=== PATIENT | female | born 1990 | race Caucasian/White ===

== ENCOUNTER 2018-11-10 06:30 | Inpatient (IN) ==
[~2018-11-10 06:30] MED LIST: D5LR 1L W PITOCIN 10 UNITS/L 10 UNITS/1,000 ML BAG IV ONE; LR 1000 ML IV 1,000 ML IV ONE; NS 100 ML IV 100 ML IV ONE; XYLOCAINE 1 % (PLAIN) ONE
[2018-11-10] MEDS ORDERED: XYLOCAINE-MPF 1% ONE (06:31)
[2018-11-10] MEDS ORDERED: FENTANYL INJ 100 mcg ONE (06:31)
[2018-11-10] MEDS ORDERED: AMPICILLIN VIAL 2 GRAM ONE (06:31)
[2018-11-10] MEDS ORDERED: D5 1/2 NS 1L W PITOCIN 20 UNITS/L 20 UNITS/1,000 ML BAG IV ONE (06:31)
[2018-11-10] MEDS ORDERED: D5 1/2 NS 1000 ML 1,000 ML IV ONE (06:31)
[2018-11-10] MEDS ORDERED: ADRENALINE CHL INJ ONE (06:31)
[2018-11-10] MEDS ORDERED: NAROPIN EPIDURAL 0.2% + FENTANYL 90MCG 60 ML EPI ONE (06:31)
[2018-11-10] MEDS ORDERED: PITOCIN ONE (06:32)
[2018-11-10] MEDS ORDERED: PHENERGAN INJ 25 MG IV PRN ×2 (06:41→11:42)
[2018-11-10] MEDS ORDERED: REGLAN INJ 10 MG VIAL IVP PRN (06:41)
[2018-11-10] MEDS ORDERED: PITOCIN IVP ONE (06:41)
[2018-11-10] MEDS ORDERED: NUBAIN INJ 200 MG VIAL MULTIDOSE IVP PRN (06:41)
[2018-11-10] MEDS ORDERED: D5 1/2 NS 1000 ML 1,000 ML IV SCH (06:41)
[2018-11-10] MEDS ORDERED: D5LR 1L W PITOCIN 10 UNITS/L 10 UNITS/1,000 ML BAG IV PRN (06:41)
[2018-11-10] MEDS ORDERED: MORPHINE SULFATE INJ 2 MG INJ IVP PRN (06:41)
[2018-11-10] MEDS ORDERED: AMPICILLIN VIAL 2 GRAM 2 G in NS 100 ML IV + SPIKE MINIBAG* 100 ML IV SCH (06:41)
--- NOTE | 2018-11-10 07:20 | DR.OB ---
OB Quick Note - Assessment/Plan Assessment/Plan: L&D 11/10/18 at 7:10am S-No complaint. O-Afebrile,VSS THQ=111 with good LTV, +accel, no decel. CTX=irregular,mild CVX=2-3cm/75%/-1/VTX AROM with clear fluid. IUPC and FSE placed. A-IUP at 38 4/7 weeks for induction +GBS Oligohydramnios Anti-M felisa P-Begin pitocin induction Ampicillin in labor for +GBS Anticipate
[2018-11-10] MEDS: AMPICILLIN VIAL 1 GRAM 1 G in NS 50 ML IV + SPIKE MINIBAG* 50 ML IV SCH ×3 (07:56→11:00)
[2018-11-10] MEDS ORDERED: AMPICILLIN VIAL 1 GRAM ONE (10:04)
[2018-11-10] MEDS ORDERED: NS 100 ML IV 100 ML IV ONE (10:04)
[2018-11-10] MEDS ORDERED: REGLAN INJ 10 MG VIAL ONE (10:17)
[2018-11-10] MEDS: D5 1/2 NS 1000 ML 1,000 ML with PITOCIN 20 UNITS IV SCH ×4 (11:35→21:00)
--- NOTE | 2018-11-10 11:49 | DR.OB ---
OB Quick Note - Assessment/Plan Assessment/Plan: Delivery Note [employer]IN[employer]NA[employer]CE 11/10/18 at 11:30am Patient complete and pushing. Head delivered over intact perineum. No nuchal cord. Nose and mouth bulb suctioned. Body delivered over intact perineum. Cord clamped x 2 and cut. Infant handed to attendant. Cord sent for gases. Cord avulsed and placenta delivered manually / intact / 3 vessel cord. No CVX / vaginal / perineal tears. Viable male infant, VTX/OA, wt=7'13" and 7/8, stable to NBN. Mother stable to RR. [id number].
[2018-11-10] MEDS ORDERED: DERMOPLAST SPRAY TOP PRN (12:56)
[2018-11-10] MEDS ORDERED: ADACEL or BOOSTRIX TDaP VACCINE IM ONE (12:56)
[2018-11-10] MEDS ORDERED: AMBIEN PO PRN (12:56)
[2018-11-10] MEDS ORDERED: MILK OF MAGNESIA PO PRN (12:56)
[2018-11-10] MEDS: MOTRIN TAB 800 MG PO PRN (20:10)
[2018-11-10] MEDS: ZANTAC PO SCH (21:00)
[2018-11-11] MEDS: D5 1/2 NS 1000 ML 1,000 ML with PITOCIN 20 UNITS IV SCH ×4 (04:02→13:22)
[2018-11-11] MEDS: MOTRIN TAB 800 MG PO PRN (04:04)
[2018-11-11 06:23] LABS: HEMATOCRIT 33.3 % (36.0-47.0); HEMOGLOBIN 11.4 g/dL (12.0-16.0)
[2018-11-11] MEDS: ZANTAC PO SCH (08:00)
[2018-11-11] MEDS ORDERED: PRENATAL PLUS PO SCH (09:00)
[2018-11-11 13:01] VITALS: BP 121/60
== END 2018-11-11 16:10 | disposition home or self-care (01) | DRG 807 ==
LOC: LD 06:37 → MED/SURG 13:23
PROVIDERS: ADMIT Specialist; ATTEND Specialist
DX: Z3A.38 38 weeks gestation of pregnancy; Z37.0 Single live birth; O26.893 Other specified pregnancy related conditions, third trimester; Z23 Encounter for immunization; O41.03X0 Oligohydramnios, third trimester, not applicable or unspecified; O99.824 Streptococcus B carrier state complicating childbirth
CPT/HCPCS: 36415; 59409; 85014; 85018; 90715; A4216; A4222; S0197; J0171; J0290; J2590; J2765; J3010; J7050; J7120; S5010